=== PATIENT | female | born 1940 | race Caucasian/White ===

== ENCOUNTER 2017-02-03 19:37 | Observation (INO) | payer MEDICARE ==
[~2017-02-03 19:37] MED LIST: ANTIVERT25 MG PO; ASPIRIN EC81 MG PO; ATENOLOL25 MG PO; ZOFRAN4 MG PO
[2017-02-03] MEDS ORDERED: CEFDINIR300 M1 PO (19:50)
[2017-02-03] MEDS ORDERED: ZOVIRAX400 M1 PO (19:52)
[2017-02-03] MEDS ORDERED: SINGULAIR10 M1 PO (19:52)
[2017-02-03] MEDS ORDERED: HYDREA500 M1 PO (19:53)
[2017-02-03] MEDS ORDERED: PROAIR HFA8.5 GM INH (19:54)
[2017-02-03 20:19] LABS: BASO % 0.6 % (0-2); BASO ABSOLUTE COUNT 0.1 tho/cmm (0.0-0.2); EOS % 0.4 % (0-7); EOSINOPHIL ABSOLUTE COUNT 0.1 tho/cmm (0.0-0.7); HCT-HEMATOCRIT 38.3 % (34.0-49.0); HGB-HEMOGLOBIN 12.4 gm/dl (12.0-15.5); IMMATURE GRANULOCYTES PERCENT 0.8 % (0-0.3); LYMPH % 4.1 % (20-45); LYMPH ABSOLUTE COUNT 0.5 tho/cmm (0.8-4.5); MCH (MEAN CORPUSCULAR HGB) 32.1 pg (28.0-32.0); MCHC MEAN CORPUSCULAR HGB CONC 32.4 % (32.0-36.0); MCV (MEAN CELL VOLUME) 99.2 fl (82.0-96.0); MEAN PLATELET VOLUME 10.3 cmc (9.4-12.4); MONO % 3.2 % (0-12); MONOCYTE ABSOLUTE COUNT 0.4 tho/cmm (0.0-1.2); NEUTROPHIL ABSOLUTE COUNT 11.2 tho/cmm (1.6-8.0); NEUTROPHIL-AUTOMATED 11.2 tho/cmm (1.6-8.0); NEUTROPHILS % 90.9 % (40-80); PLATELET COUNT 320 tho/cmm (150-450); RED BLOOD COUNT 3.86 mil/cmm (4.00-5.20); RED CELL DISTRIBUTION WIDTH 18.3 % (12.4-16.4); WHITE BLOOD COUNT 12.3 tho/cmm (4.0-10.0)
[2017-02-03 20:36] LABS: ANION GAP 14 mmol/L (0-20); BLOOD UREA NITROGEN 17 mg/dl (6-24); CARBON DIOXIDE-VENOUS 23 mmol/L (22-32); CHLORIDE 110 mmol/l (96-110); CREATININE 0.74 mg/dl (0.50-1.10); GLUCOSE 138 mg/dL (70-110); POTASSIUM 4.1 mmol/L (3.7-5.1); SODIUM 143 mmol/L (135-145); eGFR VALUE FOR BLACK 89 mL/Min
[2017-02-04] MEDS ORDERED: HYDREA500 M1 PO (12:51)
== END 2017-02-04 19:50 ==
LOC: EDMED 19:37 → EMR2 22:09 → PCUB 23:35
PROVIDERS: Emergency Medicine; Nurse Practitioner Family; ADMIT Internal Medicine Clinical Cardiac Electrophysiology
PROC: B2111ZZ Fluoroscopy of Multiple Coronary Arteries using Low Osmolar Contrast (ICD-10-PCS; principal; 2017-02-04)
DX: R06.00 Dyspnea, unspecified (principal); R79.89 Other specified abnormal findings of blood chemistry; I35.2 Nonrheumatic aortic (valve) stenosis with insufficiency; I48.0 Paroxysmal atrial fibrillation; J45.909 Unspecified asthma, uncomplicated; Z79.2 Long term (current) use of antibiotics; Z79.82 Long term (current) use of aspirin; Z79.899 Other long term (current) drug therapy; Z88.0 Allergy status to penicillin; Z88.2 Allergy status to sulfonamides; Z87.891 Personal history of nicotine dependence; Z90.49 Acquired absence of other specified parts of digestive tract
CPT/HCPCS: C8924; G0378; J1644; J1650; J2250; J3010; J7030; Q9967